=== PATIENT | female | born 1980 | race Caucasian/White ===

== ENCOUNTER 2019-06-08 05:36 | Day surgery (SDC) | payer OTHER ==
[2019-06-08] MEDS ORDERED: PROPOFOL 10 MG/ML VIAL IV ONE (05:37)
[2019-06-08] MEDS ORDERED: LIDOCAINE 2% MDV (20MG/ML) 20ML VIAL IV ONE (05:37)
[2019-06-08] MEDS ORDERED: ROPIVACAINE HCL (NAROPIN) /PF 5MG/ML 20ML VIAL IV ONE (05:37)
[2019-06-08] MEDS ORDERED: MIDAZOLAM HCL 2MG/2ML VIAL IV ONE (05:37)
[2019-06-08] MEDS ORDERED: 0.9 % SODIUM CHLORIDE 100ML 100 ML IV ONE (05:37)
[2019-06-08] MEDS ORDERED: *PACU ONLY* KETAMINE HCL 10 MG/ML (20ML) VIAL IV ONE (05:37)
[2019-06-08] MEDS ORDERED: FAMOTIDINE 20MG TABLET PO ONE (06:00)
[2019-06-08] MEDS ORDERED: CEFAZOLIN 2 Gram 2 GM/50 ML BAG IVPB ONE (06:00)
[2019-06-08] MEDS ORDERED: SCOPOLAMINE 1 PATCH TDSY TD ONE (06:00)
[2019-06-08] MEDS ORDERED: METOCLOPRAMIDE 10 MG TABLET PO ONE (06:00)
[2019-06-08] MEDS ORDERED: ACETAMINOPHEN 1,000 MG/100 ML BTL IVPB ONE (06:00)
[2019-06-08] MEDS ORDERED: RINGERS SOLUTION,LACTATED 1,000 ML IV ONE ×3 (06:07→08:57)
[2019-06-08] MEDS ORDERED: LIDOCAINE 1% MPF 100MG/10ML STERILE-PAK AMPULE SQ ONE (08:00)
[2019-06-08] MEDS ORDERED: BUPIVACAINE 0.5% (5MG/ML) PF 30ML VIAL SQ ONE (08:00)
[2019-06-08] MEDS ORDERED: FENTANYL CITRATE/PF (PACU) 50 MCG/ML VIAL IVP PRN (08:47)
[2019-06-08] MEDS ORDERED: KETOROLAC 30 MG/ML VIAL IVP ONE (09:23)
[2019-06-08] MEDS ORDERED: PROMETHAZINE HCL 12.5 MG in 0.9 % SODIUM CHLORIDE 100ML 100 ML IVPB ONE (09:28)
--- NOTE | 2019-06-08 09:45 | Operative Note ---
DATE OF SURGERY: 06/08/2019 PREOPERATIVE DIAGNOSIS: PLANTAR FASCIAL FIBROMATOSIS LEFT AND TORN PERONEAL BREVIS TENDON LEFT. POSTOPERATIVE DIAGNOSIS: PLANTAR FASCIAL FIBROMATOSIS LEFT AND TORN PERONEAL BREVIS TENDON LEFT. OPERATION: PLANTAR FASCIOTOMY LEFT AND REPAIR OF PERONEAL BREVIS TENDON TEAR LEFT. SURGEON: Everett Barrientos D.P.M. ANESTHESIA: Spinal with local block. 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 MRI shows plantar fascitis and longitudinal tear within the peroneal brevis tendon left. PROCEDURE IN DETAIL: The patient was brought into the Operating Room Suite and placed supine on the operating room table. The patient received spinal block, a tibial nerve block was given as well with 10 ml of a 50/50 mixture of 1% Lidocaine plain and 0.5% Marcaine plain after alcohol prep. Padding was put on the left calf. A pneumatic cuff was put in place. The left foot, ankle and leg were prepped and draped in usual sterile manner, elevated, and exsanguinated with Esmarch and the tourniquet was raised to 250 mmHg. An incision outline was made just distal to the proximal insertion of the medial and central band of plantar fascia in the plantar aspect of the left heel. An incision was made parallel to the relaxed skin tension lines approximately 2 cm in length. Sharp and blunt dissection was utilized to deepen the incision down to the plantar fascia. The plantar fascia was easily visualized. All vital structures were identified and retracted throughout the procedure. The visualized plantar fascia centrally and medially was cut with a 15-blade, underlying muscle belly noted, thickening noted within the plantar fascia particularly centrally. Lateral band left intact. No residual fibers left intact centrally and medially. Wound flushed with copious amounts of sterile saline. Subcu. closed in simple interrupted fashion of 3-0 Vicryl. Skin closed in vertical mattress fashion with 3-0 nylon and simple interrupted sutures with 3-0 nylon. Attention was then directed to the lateral left ankle where a curvilinear incision was made along the peroneal tendons, approximately 6 cm in length. The incision was outline and made. Sharp and blunt dissection was utilized to deepen the incision. All vital structures are identified and tracked without difficulty. Blunt dissection was utilized to deepen the incision. Sural nerve noted and retracted throughout the entire procedure, extensor retinaculum noted and incised, the peroneal tendon sheath incised. Noted was a longitudinal split to the peroneal brevis tendon from the lateral malleolus to just proximal to its insertion at the base of the fifth metatarsal peroneal longus tendon intact. Peroneal brevis tendon tubularized with 2-0 FiberWire without difficulty. Wound flushed with copious amounts of sterile saline. No tendon transfer required. The peroneal retinacula in the deep fascia closed in continuous fashion with 3-0 Vicryl, subcu. closed in similar fashion with simple interrupted sutures. The skin was closed in subcuticular continuous fashion with 5-0 PDS. Possible infiltrative block was given to the incision with 10 ml of a 50/50 mixture of 1% Lidocaine plain and 0.5% Marcaine plain. A combination of Adaptic, 4x4's, Myra and JORGE A wrap were applied. Tourniquet deflated to 0 mmHg. Hyperemic flush noted to foot and ankle. The patient is to minimize ambulation with removable cast. We will keep the extremity elevated, take pain medication as needed, keep dressing clean, dry and intact. Contact me on cell phone if needed and she is to follow-up in the office in the next 7-10 days. JOB NUMBER: [id number] MTDD
[2019-06-08] MEDS ORDERED: HYDROCODONE/APAP 7.5/325MG TABLET PO ONE (10:07)
== END 2019-06-08 10:29 | disposition home or self-care (01) ==
LOC: SUR 05:36
PROVIDERS: ATTEND Podiatrist
DX: M72.2 Plantar fascial fibromatosis (principal); S86.312A Strain of muscle(s) and tendon(s) of peroneal muscle group at lower leg level, left leg, initial encounter; I10 Essential (primary) hypertension
CPT/HCPCS: 76942; J1885; J2550; J3490; J7120